=== PATIENT | male | born 1980 | race American Indian/Alaskan Native ===

== ENCOUNTER 2018-06-26 18:59 | Emergency (ER) | payer MEDICAID, OTHER ==
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
[2018-06-26 19:44] LABS: ACETAMINOPHEN < 10 ug/mL; ANION GAP 20.3; CHLORIDE,CL 104 mmol/L (101-111); SODIUM,NA 141 mmol/L (135-145)
== END 2018-06-26 20:32 ==
LOC: DL.ED 18:59
DX: F10.129 Alcohol abuse with intoxication, unspecified (principal); Y90.7 Blood alcohol level of 200-239 mg/100 ml; V87.7XXA Person injured in collision between other specified motor vehicles (traffic), initial encounter
CPT/HCPCS: 36415; 70450; 72125; 80053; 80305; 81001; 85025; 99284; G0480

== ENCOUNTER 2020-10-19 21:40 | Emergency (ER) | payer MEDICAID ==
[2020-10-19 21:56] VITALS: BP 150/93; PULSE 79
== END 2020-10-19 22:35 | disposition left against medical advice (07) ==
LOC: DL.ED 21:40
DX: R06.00 Dyspnea, unspecified (principal); Z53.21 Procedure and treatment not carried out due to patient leaving prior to being seen by health care provider

== ENCOUNTER 2020-11-07 23:51 | Emergency (ER) | payer MEDICAID ==
--- NOTE | 2020-11-08 00:15 | EDM.PDOC ---
ED HPI GENERAL MEDICAL PROBLEM - General Stated Complaint: TROUBLE BREATHING,BAD HEART Time Seen by Provider: 11/08/20 00:05 Source of Information: Reports: Patient, EMS Notes Reviewed, Family, RN, RN Notes Reviewed History Limitations: Reports: No Limitations - History of Present Illness INITIAL COMMENTS - FREE TEXT/NARRATIVE: Patient is a 40-year-old male who presents to ER with complaint of shortness of breath, rapid heart rate which began about 2 hours ago. Patient states the rapid heart rate has since resolved as well as the chest pain on the left side. Patient states he has some sort of heart condition but is unsure of what he has as healthcare providers do not tell him. Patient denies any recent illness, fever chills, nausea, vomiting, diarrhea. Patient states he does have some history with anxiety. He states when he got his chest pain and his heart was racing he became very scared. Patient denies any drug use. Admits to drinking alcohol yesterday, approximately a 12 pack of beer. Onset: Today, Sudden - Related Data Allergies Allergy/AdvReac Type Severity Reaction Status Date / Time No Known Allergies Allergy Verified 11/08/20 00:26 Home Meds: Home Meds . [No Known Home Meds] 03/07/15 [History] Past Medical History - Past Health History Medical/Surgical History: Denies Medical/Surgical History - Infectious Disease History Other Infectious Disease History: pt reports covid vaccinated. Social & Family History - Caffeine Use Caffeine Use: Reports: Coffee, Soda ED ROS GENERAL - Review of Systems Review Of Systems: Comprehensive ROS is negative, except as noted in HPI. ED EXAM, GENERAL - Physical Exam Exam: See Below Exam Limited By: No Limitations General Appearance: Alert, WD/WN, Anxious Eye Exam: Bilateral Eye: EOMI, Normal Inspection Ears: Normal External Exam, Hearing Grossly Normal Nose: Normal Inspection Throat/Mouth: Normal Inspection, Normal Voice, No Airway Compromise Head: Atraumatic, Normocephalic Neck: Normal Inspection, Supple, Non-Tender, Full Range of Motion Respiratory/Chest: No Respiratory Distress, Lungs Clear, Normal Breath Sounds, No Accessory Muscle Use, Chest Non-Tender Cardiovascular: Normal Peripheral Pulses, Regular Rate, Rhythm, No Edema, No Gallop, No JVD, No Murmur, No Rub Peripheral Pulses: 2+: Radial (L), Radial (R) GI/Abdominal: Normal Bowel Sounds, Soft, Non-Tender (Male) Exam: Deferred Rectal (Males) Exam: Deferred Back Exam: Normal Inspection, Full Range of Motion, NT Extremities: Normal Inspection, Normal Range of Motion, Non-Tender, Normal Capillary Refill, No Pedal Edema Neurological: Alert, Oriented, CN II-XII Intact, Normal Cognition, Normal Gait, Normal Reflexes, No Motor/Sensory Deficits Psychiatric: Normal Affect, Normal Mood, Anxious Skin Exam: Warm, Dry, Intact, Normal Color, No Rash Lymphatic: No Adenopathy #1 Interpretation EKG Date: 11/08/20 Time: 00:19 Rhythm: NSR Rate (Beats/Min): 68 [place]: Normal P-Wave: Present QRS: Normal ST-T: Normal QT: Normal Comparison: NA - No Prior EKG Course - Vital Signs Last Recorded V/S: Last Vital Signs Temp 98.1 F 11/08/20 00:03 Pulse 69 11/08/20 00:03 Resp 18 11/08/20 00:03 BP 139/83 11/08/20 00:03 Pulse Ox 98 11/08/20 00:03 - Orders/Labs/Meds Orders: Active Orders 24 hr Category Date Time Status EKG Documentation Completion [RC] STAT Care 11/08/20 00:08 Active CBC WITH AUTO DIFF [HEME] Stat Lab 11/08/20 00:19 Results MANUAL DIFFERENTIAL QA/NC [HEME] Stat Lab 11/08/20 00:19 Results Labs: Laboratory Tests 11/08/20 11/08/20 Range/Units 00:19 00:19 WBC 7.5 (5.0-10.0) 10^3/uL RBC 4.62 (4.6-6.2) 10^6/uL Hgb 14.9 D (14.0-18.0) g/dL Hct 42.6 (40.0-54.0) % MCV 92.2 (80-100) fL MCH 32.3 (27.0-34.0) pg MCHC 35.0 (33.0-35.0) g/dL Plt Count 262 (150-450) 10^3/uL Neut % (Auto) 42.5 (42.2-75.2) % Lymph % (Auto) 43.5 (20.5-50.1) % [place] % (Auto) 10.9 H (2-8) % Eos % (Auto) 2.7 (1.0-3.0) % Baso % (Auto) 0.4 (0.0-1.0) % Add Manual Diff Yes Sodium 141 (136-145) mmol/L Potassium 3.1 L (3.5-5.1) mmol/L Chloride 103 (98-107) mmol/L Carbon Dioxide 26 (21-32) mmol/L Anion Gap 15.1 H (7-13) mEq/L BUN 13 (7-18) mg/dL Creatinine 0.79 (0.70-1.30) mg/dL Est Cr Clr Drug Dosing 132.38 mL/min Estimated GFR (MDRD) > 60 BUN/Creatinine Ratio 16.5 (No establ ref range) Glucose 125 H (70-99) mg/dL Calcium 7.8 L (8.5-10.1) mg/dL Total Bilirubin 0.5 (0.2-1.0) mg/dL AST 18 (15-37) U/L ALT 28 (16-63) U/L Alkaline Phosphatase 112 (46-116) U/L Troponin I High Sens 4 (<=76) pg/mL Total Protein 6.9 (6.4-8.2) g/dL Albumin 3.6 (3.4-5.0) g/dL Globulin 3.3 Albumin/Globulin Ratio 1.1 Ethyl Alcohol 126 (0) mg/dL Meds: Medications Discontinued Medications Generic Name Dose Route Start Last Admin Trade Name Freq PRN Reason Stop Dose Admin Potassium Chloride 40 meq 11/08/20 01:39 Potassium Chloride 10 Meq Tab.Er PO 11/08/20 01:40 ONETIME ONE - Radiology Interpretation Free Text/Narrative:: Chest x-ray: PROCEDURE INFORMATION: Exam: XR Chest Exam date and time: 11/08/2020 12:16 AM Age: 40 years old Clinical indication: Chest wall pain; Additional info: Chest pain TECHNIQUE: Imaging protocol: XR of the chest. Views: 1 view. COMPARISON: CR Chest 1V Frontal 11/11/2015 2:12 AM FINDINGS: Lungs: Unremarkable. No consolidation. Pleural spaces: Unremarkable. No pleural effusion. No pneumothorax. Heart/Mediastinum: Unremarkable. No cardiomegaly. Bones/joints: No evidence of acute osseous abnormality. IMPRESSION: No radiographically apparent acute abnormality in the chest. No significant change from prior. Thank you for allowing us to participate in the care of your patient. Dictated and Authenticated by: Eron Reina MD 11/08/2020 12:56 AM Central Time ([place] & [place]) See radiologist report Departure - Departure Time of Disposition: 01:44 Disposition: Home, Self-Care 01 Reason for Transfer *Q: Other Condition: Good Clinical Impression: Palpitations, Anxiety, ETOH abuse, Hypokalemia Instructions: Palpitations, [id number], Managing Anxiety, Adult, Hypokalemia Forms: ED Department Discharge Additional Instructions: Drink plenty of water Refrain from drinking alcohol Follow-up with your primary care provider in the clinic for possible referral Return to the ER with any worsening of problems Eat bananas and high potassium foods to elevate potassium level Sepsis Event Note (ED) - Focused Exam Vital Signs: Vital Signs Temp Pulse Resp BP Pulse Ox 11/08/20 00:03 98.1 F 69 18 139/83 98 - My Orders Last 24 Hours: My Active Orders 11/08/20 00:08 EKG Documentation Completion [RC] STAT 11/08/20 00:19 CBC WITH AUTO DIFF [HEME] Stat MANUAL DIFFERENTIAL QA/NC [HEME] Stat - Assessment/Plan Last 24 Hours: My Active Orders 11/08/20 00:08 EKG Documentation Completion [RC] STAT 11/08/20 00:19 CBC WITH AUTO DIFF [HEME] Stat MANUAL DIFFERENTIAL QA/NC [HEME] Stat
[2020-11-08 00:34] VITALS: BP 139/83; PULSE 69
[2020-11-08 00:49] LABS: ANION GAP 15.1 mEq/L (7-13); CHLORIDE,CL 103 mmol/L (98-107); SODIUM,NA 141 mmol/L (136-145)
--- NOTE | 2020-11-08 00:56 | CR ---
PROCEDURE INFORMATION: Exam: XR Chest Exam date and time: 11/08/2020 12:16 AM Age: 40 years old Clinical indication: Chest wall pain; Additional info: Chest pain TECHNIQUE: Imaging protocol: XR of the chest. Views: 1 view. COMPARISON: CR Chest 1V Frontal 11/11/2015 2:12 AM FINDINGS: Lungs: Unremarkable. No consolidation. Pleural spaces: Unremarkable. No pleural effusion. No pneumothorax. Heart/Mediastinum: Unremarkable. No cardiomegaly. Bones/joints: No evidence of acute osseous abnormality. IMPRESSION: No radiographically apparent acute abnormality in the chest. No significant change from prior.
[2020-11-08] MEDS ORDERED: Potassium Chloride 10 MEQ Tab.ER PO ONE (01:39)
== END 2020-11-08 01:46 | disposition home or self-care (01) ==
LOC: DL.ED 23:51
DX: R00.2 Palpitations (principal); F41.9 Anxiety disorder, unspecified; E87.6 Hypokalemia; F10.10 Alcohol abuse, uncomplicated; Y90.6 Blood alcohol level of 120-199 mg/100 ml
CPT/HCPCS: 36415; 71045; 80053; 80307; 84484; 85025; 93005; 93010; 99284; 99285-25